=== PATIENT | male | born 1985 | race Caucasian/White ===

== ENCOUNTER 2017-01-21 07:10 | Emergency (ER) | payer SELFPAY ==
[~2017-01-21] VITALS: Ht 190.5 cm; Wt 108.9 kg
[2017-01-21 07:21] VITALS: BP 133/84
[2017-01-21] MEDS ORDERED: NORCO, ANEXSIA 5/325MG TABLET (HYDROcodone/ACETAMINOPHEN) PO ONE (07:30)
[2017-01-21] MEDS ORDERED: HYDR-3713 PO (07:49)
--- NOTE | 2017-01-21 08:10 | REP ---
Clinical: Trauma. Technique: AP, lateral, bilateral oblique views of the left hand. Findings: Transverse fractures noted throughout the distal aspects of the second, third, and fourth metacarpal bones with volar angulation and overlying soft tissue swelling. No subcutaneous emphysema or radiodense foreign body appreciated. Remainder examination appears normal. Impression: Angulated transverse fractures through the second through fourth metacarpal bones. Signed by Rocael Alvarez MD 01/21/2017 08:00 A
== END 2017-01-21 08:03 | disposition home or self-care (01) ==
LOC: M ED 07:52
DX: S62.331A Displaced fracture of neck of second metacarpal bone, left hand, initial encounter for closed fracture (principal); S62.313A Displaced fracture of base of third metacarpal bone, left hand, initial encounter for closed fracture; S62.315A Displaced fracture of base of fourth metacarpal bone, left hand, initial encounter for closed fracture; W23.0XXA Caught, crushed, jammed, or pinched between moving objects, initial encounter; Y92.096 Garden or yard of other non-institutional residence as the place of occurrence of the external cause; Y93.H9 Activity, other involving exterior property and land maintenance, building and construction; Y99.8 Other external cause status; F17.210 Nicotine dependence, cigarettes, uncomplicated

== ENCOUNTER 2018-06-29 14:06 | Emergency (ER) | payer SELFPAY | END 2018-06-29 15:35 | disposition home or self-care (01) | LOC: M ED 14:06 | DX: M54.41 Lumbago with sciatica, right side (principal); F17.200 Nicotine dependence, unspecified, uncomplicated; Z79.899 Other long term (current) drug therapy | CPT/HCPCS: 99282 ==

== ENCOUNTER 2018-10-29 07:52 | Emergency (ER) | payer SELFPAY ==
[~2018-10-29] VITALS: Ht 190.5 cm; Wt 118.2 kg
[2018-10-29 07:52] VITALS: BP 168/99
[~2018-10-29 07:52] MED LIST: AMOX875T PO; CYCL10TA PO; HYDR-3713 PO; IBUP-1022; KETO10TAB PO; MAGICMW SSP; dayquil PO
[2018-10-29] MEDS ORDERED: AMOX500C PO (08:19)
[2018-10-29] MEDS ORDERED: MAGICMW SSP (08:19)
== END 2018-10-29 08:30 | disposition home or self-care (01) ==
LOC: M ED 07:52
DX: S02.5XXA Fracture of tooth (traumatic), initial encounter for closed fracture (principal); K08.89 Other specified disorders of teeth and supporting structures; X58.XXXA Exposure to other specified factors, initial encounter; Y92.89 Other specified places as the place of occurrence of the external cause; F17.200 Nicotine dependence, unspecified, uncomplicated

== ENCOUNTER 2019-10-10 09:07 | Emergency (ER) | payer OTHER, SELFPAY ==
[~2019-10-10] VITALS: Ht 190.5 cm; Wt 127.3 kg
[~2019-10-10 09:07] MED LIST changes: +AMOX500C PO
[2019-10-10] MEDS ORDERED: PERCOCET 5MG/325MG TAB PO ONE ×2 (09:30→14:00)
--- NOTE | 2019-10-10 10:18 | REP ---
Right ankle four views: There is a comminuted nondisplaced fracture of the distal tibia. There is a spiral fracture of the distal fibula. The mortise is symmetric. Talar dome is unremarkable. There is no dislocation. Impression: Fractures of the distal tibia and fibula as described. Electronically Signed by Demarcus Nelson MD 10/10/2019 10:10 A
--- NOTE | 2019-10-10 10:20 | REP ---
Right tibia-fibula two views: The distal tibia and fibula are excluded but are included in the ankle series this same date. There is no fracture or dislocation in the visualized portions of the proximal and mid tibia and fibula. There are no calcifications or foreign bodies. Electronically Signed by Demarcus Nelson MD 10/10/2019 10:11 A
[2019-10-10] MEDS ORDERED: NS 1,000 ML IV ONE ×2 (11:00→12:30)
[2019-10-10] MEDS ORDERED: MORPHINE 4 MG/ML 1ML VIAL/SYRINGE (J2270) IV ONE (11:00)
[2019-10-10 11:14] LABS: BASO % 0.4 % (0.0-1.0); EOS # 0.1 10^3/uL (0.0-0.5); EOS % 1.4 % (0.0-3.0); HEMATOCRIT 48.6 % (42.0-52.0); HEMOGLOBIN 15.8 g/dl (13.5-17.5); LYMPH # 1.7 10^3/uL (1.5-5.0); LYMPH % 19.1 % (24.0-44.0); MEAN CORPUSCULAR HEMOGLOBIN 28.1 pg (27.0-33.0); MEAN CORPUSCULAR HGB CONC 32.5 g/dl (32.0-36.5); MEAN CORPUSCULAR VOLUME 86.5 fl (80.0-96.0); MONO # 0.7 10^3/uL (0.0-0.8); MONO % 7.7 % (0.0-5.0); NEUTROPHILS # 6.4 10^3/uL (1.5-8.5); PLATELET COUNT, AUTOMATED 228 10^3/uL (150-450); RED BLOOD COUNT 5.62 10^6/uL (4.30-6.10); WHITE BLOOD COUNT 9.1 10^3/uL (4.0-10.0)
[2019-10-10 11:24] LABS: INR 0.97; PROTHROMBIN TIME 12.6 SECONDS (11.8-14.0)
[2019-10-10 11:25] LABS: PARTIAL THROMBOPLASTIN TIME 27.6 SECONDS (25.0-38.4)
[2019-10-10] MEDS ORDERED: MORPHINE 2 MG/ML 1ML VIAL (J2270) IV ONE ×2 (12:30→16:00)
[2019-10-10 15:56] VITALS: BP 113/56
[2019-10-10] MEDS ORDERED: OXYC10TA3 PO (16:51)
--- NOTE | 2019-10-11 07:42 | REP ---
CT RIGHT ANKLE: Axial CT right ankle was performed. Sagittal, coronal, and 3D reconstruction images are performed. There is an extensive comminuted fracture of the distal end of the tibia, diffusely. There is mild distraction of the multiple fracture fragments. There is significant disruption of the ankle mortise with several fracture lines extending into the tibiotalar joint. There is a nondisplaced fracture of the posterior malleolus. There is a nondisplaced fracture of the distal fibula. Curvilinear calcification distal to the lateral malleolus could represent an avulsion fracture. There is an accessory ossicle posterior to the talus. A few small linear calcifications along the lateral margin of the talonavicular joint could represent tendinous calcifications and or old avulsion fractures. Electronically Signed by Demarcus Garcia MD 10/12/2019 01:25 P
== END 2019-10-10 17:20 | disposition home or self-care (01) ==
LOC: M ED 09:07
DX: S82.254A Nondisplaced comminuted fracture of shaft of right tibia, initial encounter for closed fracture (principal); S82.831A Other fracture of upper and lower end of right fibula, initial encounter for closed fracture; S82.899A Other fracture of unspecified lower leg, initial encounter for closed fracture; S92.101A Unspecified fracture of right talus, initial encounter for closed fracture; W19.XXXA Unspecified fall, initial encounter; Y92.9 Unspecified place or not applicable; Y93.9 Activity, unspecified; Y99.0 Civilian activity done for income or pay; F17.200 Nicotine dependence, unspecified, uncomplicated
CPT/HCPCS: 29515; 36415; 73590; 73610; 73700; 80047; 85025; 85610; 85730; 96361; 96374; 96376; 99284; J2270

== ENCOUNTER 2019-11-07 12:04 | Emergency (ER) | payer OTHER ==
[~2019-11-07] VITALS: Ht 190.5 cm; Wt 133.0 kg
[~2019-11-07 12:04] MED LIST changes: +OXYC10TA3 PO
[2019-11-07] MEDS ORDERED: ASPI-1 PO (12:11)
[2019-11-07] MEDS ORDERED: HYDR-3713 (12:11)
--- NOTE | 2019-11-07 14:29 | REP ---
Right lower extremity deep vein duplex ultrasound: The deep veins demonstrate normal compression, normal Doppler color flow and normal Doppler waveforms with respiration and augmentation from the popliteal vein to the common femoral vein. Impression: There is no right lower extremity deep vein thrombus. Electronically Signed by Demarcus Nelson MD 11/07/2019 02:20 P
[2019-11-07 15:08] VITALS: BP 133/79
== END 2019-11-07 15:11 | disposition home or self-care (01) ==
LOC: M ED 12:04
DX: M79.661 Pain in right lower leg (principal); F17.200 Nicotine dependence, unspecified, uncomplicated

== ENCOUNTER 2019-12-01 18:36 | Emergency (ER) | payer OTHER, SELFPAY ==
[~2019-12-01] VITALS: Ht 190.5 cm; Wt 132.2 kg
[~2019-12-01 18:36] MED LIST changes: +ASPI-1 PO; +HYDR-3713
[2019-12-01 19:41] LABS: BASO # 0.1 10^3/uL (0.0-0.2); BASO % 0.4 % (0.0-1.0); EOS # 0.5 10^3/uL (0.0-0.5); EOS % 3.7 % (0.0-3.0); HEMATOCRIT 45.5 % (42.0-52.0); LYMPH # 2.3 10^3/uL (1.5-5.0); LYMPH % 18.6 % (24.0-44.0); MEAN CORPUSCULAR HEMOGLOBIN 28.1 pg (27.0-33.0); MEAN CORPUSCULAR VOLUME 85.2 fl (80.0-96.0); MONO # 1.5 10^3/uL (0.0-0.8); MONO % 11.8 % (0.0-5.0); NEUTROPHILS % 65.2 % (36.0-66.0); PLATELET COUNT, AUTOMATED 293 10^3/uL (150-450); RED BLOOD COUNT 5.34 10^6/uL (4.30-6.10); WHITE BLOOD COUNT 12.3 10^3/uL (4.0-10.0)
[2019-12-01] MEDS ORDERED: ISOVUE-370 76% 100ML VIAL (Q9967) As Ordered ONE (19:54)
[2019-12-01 20:04] LABS: CK-MB VALUE MASS < 1.0 NG/ML (<3.6); CPK CREATINE PHOSPHOKINASE 88 U/L (39-308); MB/CK RELATIVE INDEX 1.14 (< OR =4); TROPONIN I < 0.02 NG/ML (< 0.10)
--- NOTE | 2019-12-01 20:14 | REPVR ---
PROCEDURE INFORMATION: Exam: CT Angiography Chest With Contrast Exam date and time: 12/01/2019 7:57 PM Age: 34 years old Clinical indication: Chest pain; Additional info: Pleuritic cp S/P surg TECHNIQUE: Imaging protocol: Computed tomographic angiography of the chest with intravenous contrast. Axial, coronal and sagittal reformatted images were created and reviewed. 3D rendering: MIP and/or 3D reconstructed images were created by the technologist. Radiation optimization: All CT scans at this facility use at least one of these dose optimization techniques: automated exposure control; mA and/or kV adjustment per patient size (includes targeted exams where dose is matched to clinical indication); or iterative reconstruction. Contrast material: ISOVUE 370; Contrast volume: 75 ml; Contrast route: IV; COMPARISON: CR Chest, 2 view PA, Lat 03/07/2014 3:21 PM FINDINGS: Pulmonary arteries: Contrast opacification suboptimal. Nonocclusive segmental and subsegmental right lower lobe pulmonary emboli. Probable small subsegmental right upper lobe pulmonary emboli. Aorta: Unremarkable. No aneurysm or dissection. Lungs: Unremarkable. No consolidation. No mass. Pleural space: Unremarkable. No pneumothorax. No pleural effusion. Heart: Unremarkable. No cardiomegaly. No pericardial effusion. Lymph nodes: No pathologically enlarged lymph nodes. Bones/joints: No acute osseous abnormality. Soft tissues: Unremarkable. IMPRESSION: Nonocclusive segmental and subsegmental right lower lobe pulmonary emboli. Probable small subsegmental right upper lobe pulmonary emboli. Additional emboli cannot be excluded due to the study limitations. Electronically signed by: Don Figueroa On 12/01/2019 20:14:36 PM
[2019-12-01 20:32] VITALS: O2SAT 99
[2019-12-01] MEDS ORDERED: ELIQ5TAB PO (21:17)
[2019-12-01] MEDS ORDERED: APIXABAN 5 MG TAB (ELIQUIS) PO ONE (21:30)
[2019-12-01 21:40] VITALS: BP 137/81
--- NOTE | 2019-12-03 00:46 | ECGEPIP ---
[facility] Test Date: 2019-12-01 Pat Name: ENZO PADILLA Department: Room: - Gender: Male Diversity Intern: NICK : [id number] Requested By: REAGAN Garrison PA-C Order Number: [id number] Reading MD: Errol Chan Measurements Intervals [place] Rate: 78 P: 0 MD: 165 QRS: 29 QRSD: 109 T: 14 QT: 365 QTc: 416 Interpretive Statements SINUS RHYTHM EARLY REPOLARIZATION No prior tracing in the system Electronically Signed on 12-03-2019 0:45:39 EDT by Errol Chan
== END 2019-12-01 21:45 | disposition home or self-care (01) ==
LOC: M ED 18:36
DX: I26.99 Other pulmonary embolism without acute cor pulmonale (principal); R07.1 Chest pain on breathing; Z98.890 Other specified postprocedural states; Z87.01 Personal history of pneumonia (recurrent); F17.200 Nicotine dependence, unspecified, uncomplicated
CPT/HCPCS: 71275; 80047; 82550; 82553; 84484; 85025; 93005; 99284; Q9967